=== PATIENT | female | born 2000 | race Caucasian/White ===

== ENCOUNTER 2023-03-26 15:23 | Outpatient (CLI) | payer SELFPAY | END 2023-03-26 15:24 | disposition home or self-care (01) | LOC: NFLDUCREF 15:23 | PROVIDERS: Visit Provider Physician Assistant | DX: R42 Dizziness and giddiness (principal) | CPT/HCPCS: 85379 ==

== ENCOUNTER 2024-03-02 20:59 | Emergency (ER) | payer OTHER, SELFPAY ==
[2024-03-02 21:11] VITALS: BP 127/87; PULSE 77; RESP 16; TEMP 36.6; O2SAT 98; BMI 25.1
--- NOTE | 2024-03-02 21:38 | ED.GENADULT ---
HPI - General Adult General Time Seen by Provider: 21:43 Date Seen: 03/02/24 Chief complaint: Unspecified Complaint, Adult Stated complaint: Found bat in room Time Seen by Provider: 03/02/24 21:43 Source: patient and RN notes reviewed Mode of arrival: ambulatory Limitations: no limitations History of Present Illness HPI narrative: This 23-year-old college student from [place] had a bat exposure. She found a bat, was under a chair that she had been sitting on with fabric over it. She stated the bat still had hair on it, can not really tell me if it desiccated or old. The campus security actually removed the bat and did send it out for testing. She understands that she can theoretically wait until testing is done. We have discussed that it is very difficult for me to decipher if this bat has been for quite a while or not. That certainly does way into the equation here. She has had partial rabies treatment/immunization. She was in [facility] before and was bit by a cat. She thinks she had 3 of the 5 vaccines, she subsequently saw the CT that looked healthy again in the did not go back for subsequent vaccines. She is not aware of any bite alvarado, we did discuss that people frequently do not even know if there bit by a bat. We did discuss that the [place] department of Health does recommend that people who awaken in rooms with bats do get the immune globulin and series. Given that she has had partial rabies vaccination before, she would just need the to rabies vaccines for boosters. We have discuss risks and benefits of this approach, she would like to proceed with getting the vaccines. We will do 1 this evening and she will return effectively day 3 for the 2nd booster. It is reviewed with her that she does not require full series nor does she require the rabies immunoglobulin. She has not been sick with anything, no illnesses, no recent fevers. Related Data Home Medications ?Medication ?Instructions ?Recorded ?Confirmed No Known Home Medications 03/26/23 03/26/23 Allergies Allergy/AdvReac Type Severity Reaction Status Date / Time No Known Drug Allergies Allergy Verified 03/26/23 13:58 Review of Systems Narrative: As per HPI. [facility] Medical History (Updated 03/02/24 @ 21:52 by Chiquis López MD) Lightheadedness ?R42 - Dizziness and giddiness (ICD-10) Exam Const: Vital Signs, click to edit/add: Vital Signs - 24 hr 03/02/24 21:11 Temperature 97.8 F Pulse Rate [Pulse Oximeter] 77 Respiratory Rate 16 Blood Pressure [Ri ght Upper Arm] 127/87 Pulse Oximetry 98 Oxygen Delivery Me thod Room Air This is a very well kept 23-year-old female ambulatory into the ED. She was seen in triage due to the volume in the ER. She is alert, interactive, no apparent distress. Documenting provider has reviewed patient's vital signs: yes Course Vital Signs Vital signs: Initial Vital Signs Temperature 97.8 F 03/02/24 21:11 Temperature Source Temporal Artery Scan 03/02/24 21:11 Pulse Rate 77 03/02/24 21:11 Respiratory Rate 16 03/02/24 21:11 Blood Pressure 127/87 03/02/24 21:11 Blood Pressure Mean 100 03/02/24 21:11 Blood Pressure Position Sitting 03/02/24 21:11 Pulse Oximetry 98 03/02/24 21:11 Oxygen Delivery Method Room Air 03/02/24 21:11 Vital Signs Temperature 97.8 F 03/02/24 21:11 Pulse Rate 77 03/02/24 21:11 Respiratory Rate 16 03/02/24 21:11 Blood Pressure 127/87 03/02/24 21:11 Pulse Oximetry 98 03/02/24 21:11 Oxygen Delivery Method Room Air 03/02/24 21:11 Temperature 97.8 F 03/02/24 21:11 Pulse Rate 77 03/02/24 21:11 Respiratory Rate 16 03/02/24 21:11 Blood Pressure 127/87 03/02/24 21:11 Pulse Oximetry 98 03/02/24 21:11 Oxygen Delivery Method Room Air 03/02/24 21:11 Discharge Plan Discharge Clinical Impression: Rabies exposure Patient Disposition: Home, Self-Care Condition: Stable Instructions: Rabies Vaccine (By injection) Additional Instructions: We will have you return WednesdayMarch 05 4 year 2nd rabies vaccine booster. If you have any soreness at the injection site, feel achy or low-grade fevers, can use Tylenol or ibuprofen per bottle directions. Activity Level: No Restrictions Discharge Diet: Regular Prescriptions: No Action No Known Home Medications Follow Up/Referrals: Provider,Not a Local [Primary Care Provider] - Stand Alone Forms: [facility] Info Instructions
[2024-03-02] MEDS: RABIES VACCINE (RABAVERT) 2.5 UNIT IM (21:54)
--- OUTSIDE RECORDS SUMMARY | 2024-03-02 21:59 | XMS_ITS | Clinical Summary ---
Author Organization [facility] Address [place] [address] Care Team Providers Care Ice Crusher Name Role Phone Pcp, No Primary Care Provider Unavailabl e Allergies No known active allergies Medications No known medications Immunizations Name Administration Dates Next Due Influenza, Injectable, Mdck, Quadrivalent, W/preservative 04/03/2021 Social History Tobacco Use Types Packs/Day Years Used Date Smoking Tobacco: Never Smokeless Tobacco: Never Tobacco Cessation:Counseling Given: Yes Alcohol Use Standard Drinks/Week Comments Yes 0 (1 standard drink = 0.6 oz pur e alcohol) 6 drinks per week Social Connections Answer Date Recorded Frequency of Communication with Friends and Fami ly 0 05/06/2023 Financial Resource Strain Answer Date R ecorded Difficulty of Paying Living Expenses 3 05/06/2023 Difficulty of Paying Living Expenses Not on file 05/06/2023 Food Insecurity Answer Date Recorded Worried About Running Out of Food in the Last Ye ar 1 05/06/2023 Transportation Needs Answer Date Record ed Lack of Transportation (Medical) 1 05/06/2023 Housing Stability Answer Date Recorded Unable to Pay for Housing in the Last Year 1 05/06/2023 Sex and Gender Information Value Date Recorded Sex Assigned at Not on file Gender Identity Not on file Sexual Orientation Not on file Obstetrics History Last Filed Vital Signs Vital Sign Reading Time Taken Comments Blood Pressure 99/67 05/06/2023 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 Pulse 60 05/06/2023 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 Temperature - - Respiratory Rate - - Oxygen Saturation 100% 05/06/2023 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 Inhaled Oxygen Concentration - - Weight 71.7 kg (158 lb) 05/06/2023 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 Height 167.6 cm (5' 6) 05/06/2023 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 Body Mass Index 25.5 05/06/2023 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 Plan of Treatment Health Maintenance Due Date Last Done Comments Tdap 2013 Depression screening for age 12+ 2014 HIV for age 15-65 2017 HPV series for age 9-26 (1 - 3-dose series) 2017 Chlamydia for age 16-24 2018 Hepatitis C screening for ag e 18-79 2020 Tetanus booster 2022 Pap test for age 21-65 12/08/2023 COVID-19 vaccine series (2022- season) 2024 Influenza for age 9-49 02/20/2024 04/03/2021 BMI (ht and wt on same day) for age 18+ 05/06/2024 05/06/2023, 04/08/2023 Meningococcal series for age 11-21 Aged Out No longer eligible b ased on patient's age to complete this topic Pneumococcal series for age 6-64 Aged Out No longer eligible b ased on patient's age to complete this topic Care Teams Ice Crusher Relationship Specialty Start Date End Date Pcp, No . PCP - General 04/08/23
== END 2024-03-02 22:12 | disposition home or self-care (01) ==
LOC: ED 21:57
PROVIDERS: Emergency Provider Family Medicine
DX: Z20.3 Contact with and (suspected) exposure to rabies (principal)
CPT/HCPCS: 90471; 96372; 99282; 99283; 90675